=== PATIENT | male | born 1955 | race Caucasian/White ===

== ENCOUNTER 2018-05-23 12:58 | Emergency (ER) | payer OTHER ==
[~2018-05-23] VITALS: Ht 172.7 cm; Wt 86.2 kg
[2018-05-23 13:20] LABS: ABSOLUTE NEUTROPHILS 6.7 thou/uL (1.4-8.2); BASOPHILS 1.2 % (0.0-2.0); EOSINOPHILS 1.9 % (0.0-3.0); HEMATOCRIT 48.4 % (42.0-52.0); HEMOGLOBIN 16.3 gm/dL (14.0-18.0); LYMPHOCYTES 21.6 % (24.0-44.0); MCH 29.2 pg (26.0-34.0); MCHC 33.6 g/dL (28.0-37.0); MCV 86.9 fL (80.0-100.0); MONOCYTES 6.2 % (1.0-8.0); PLATELET COUNT 297 thou/uL (150-400); POLYS 69.1 % (36.0-66.0); RBC 5.57 mil/uL (4.50-6.00); RDW 13.1 % (10.5-14.5); WBC 9.6 thou/uL (4.0-11.0)
[2018-05-23] MEDS ORDERED: LISINOPRIL2.5 M1 PO (13:20)
[2018-05-23] MEDS ORDERED: SYNTHROID100 MC1 PO (13:20)
[2018-05-23] MEDS ORDERED: NORVASC2.5 MG PO (13:20)
[2018-05-23 13:26] LABS: CREATININE 1.3 mg/dL (0.7-1.3); POTASSIUM 3.7 mmol/L (3.5-5.1)
[2018-05-23 13:33] LABS: ALBUMIN 4.1 g/dL (3.4-5.0); TOTAL BILIRUBIN 0.5 mg/dL (<0.1-1.0); TOTAL PROTEIN 7.5 g/dL (6.4-8.2)
[2018-05-23 13:42] LABS: URINE BILIRUBIN NEGATIVE (Negative); URINE BLOOD 2+ (Negative); URINE CLARITY CLEAR; URINE COLOR YELLOW; URINE GLUCOSE-RANDOM* NEGATIVE (Negative); URINE KETONES TRACE (Negative); URINE LEUKOCYTES-REFLEX NEGATIVE (Negative); URINE NITRITE-REFLEX NEGATIVE (Negative); URINE PROTEIN (DIPSTICK) NEGATIVE (Negative); URINE UROBILINOGEN 0.2 E.U./dl (0.2-1.0)
[2018-05-23 13:51] LABS: CASTS None Seen /LPF (None Seen); MUCUS 0-3 Light strn/LPF (None Seen); SQUAMOUS 0-3 Few /LPF (0-3); URINE RBC >20 Many /HPF (0-2); URINE WBC-REFLEX 0-5 Rare /HPF (0-5)
[2018-05-23 13:53] LABS: CALCIUM OXALATE 0-3 Few /LPF (None Seen)
[2018-05-23 13:54] LABS: BACTERIA-REFLEX 1-9 Few /HPF (None Seen)
[2018-05-23] MEDS ORDERED: ONDANSETRON HCL4 M2 PO (15:04)
[2018-05-23] MEDS ORDERED: NORCO 5-325 TA1 EACH PO (15:04)
[2018-05-23] MEDS ORDERED: CIPRO500 MG PO (15:04)
[2018-05-23] MEDS ORDERED: FLOMAX0.4 MG PO (15:04)
[2018-05-23 15:32] VITALS: BP 162/81
== END 2018-05-23 15:34 | disposition home or self-care (01) ==
LOC: ER 12:58
PROVIDERS: Nurse Practitioner Family
DX: N20.0 Calculus of kidney (principal); Z88.2 Allergy status to sulfonamides; Z87.442 Personal history of urinary calculi